=== PATIENT | female | born 1965 | race Caucasian/White ===

== ENCOUNTER 2017-01-29 14:38 | Emergency (ER) | payer OTHER ==
--- NOTE | 2017-01-29 16:30 | RAD ---
INDICATION: Left arm and hand pain. COMPARISON: There are no prior studies available for comparison. TECHNIQUE: Contiguous axial sections were obtained from the skull base through the T3 vertebra. Images were reconstructed in the sagittal and coronal planes. FINDINGS: There is straightening of the cervical spine with loss of the normal cervical lordosis. No prevertebral soft tissue swelling or fracture is seen. At the C3-C4 level there is mild posterior uncinate process spurring and hypertrophic change within the right facet joint. No significant spinal canal narrowing is present. There is mild neural foraminal narrowing on the left side and mild to moderate neural foraminal narrowing on the right side. At the C4-C5 level no significant spinal canal or neural foraminal narrowing is seen. At the C5-C6 level there is posterior uncinate process spurring which causes mild spinal canal narrowing. There is mild neural foraminal narrowing on the right side and moderate to severe neural foraminal narrowing on the left side. At the C6-C7 level there is mild posterior uncinate process spurring. No significant spinal canal narrowing is present. There is mild neural foraminal narrowing on the right side and moderate neural foraminal narrowing on the left side. IMPRESSION: 1. STRAIGHTENING OF THE CERVICAL SPINE, NO EVIDENCE FOR FRACTURE. 2. MILD TO MODERATE CERVICAL SPONDYLOSIS DESCRIBED IF THE PATIENT'S SYMPTOMS PERSIST CONSIDER MR IMAGING.
--- NOTE | 2017-01-29 16:38 | RAD ---
INDICATION: Left forearm pain. TECHNIQUE: 2 views of the left forearm were obtained. FINDINGS: The bones are normal alignment. No significant focal osseous abnormality or fracture is seen. IMPRESSION: NEGATIVE EXAM.
[2017-01-29 16:58] VITALS: BP 134/84
--- NOTE | 2017-01-29 17:03 | RAD ---
INDICATION: Left posterior chest pain. COMPARISON: There are no prior studies available for comparison. TECHNIQUE: A CT scan of the chest was performed without intravenous contrast. Contiguous axial sections were obtained from the lung apices through the lung bases. Images were reconstructed in the coronal and sagittal planes. FINDINGS: The lungs are clear. No pleural effusion is seen. No significant enlarged mediastinal or hilar lymph nodes are seen. The heart is within normal limits in size. No pericardial effusion is present. The thoracic aorta is normal in caliber. There is a small hiatal hernia present. No significant focal osseous abnormality is seen. IMPRESSION: 1. NO EVIDENCE FOR ACUTE FINDING. 2. SMALL HIATAL HERNIA.
--- NOTE | 2017-01-29 17:08 | RAD ---
INDICATION: Left upper arm pain and weakness. COMPARISON: There are no prior studies available for comparison. TECHNIQUE: Contiguous axial sections were obtained beginning above the C7 vertebra and scanning through the T12 vertebra. Images were reconstructed in the sagittal and coronal planes. FINDINGS: There is a [id number] dorsal scoliosis convex toward the right side. The vertebra are otherwise in normal alignment. No fracture is seen. There is mild diffuse degenerative disc disease. No significant spinal canal narrowing is appreciated. Neural foramen appear patent bilaterally. IMPRESSION: MILD DIFFUSE DEGENERATIVE DISC DISEASE. IF THE PATIENT'S SYMPTOMS PERSIST CONSIDER MR IMAGING.
--- NOTE | 2017-01-29 17:51 | UC ---
Lonnie Hunter SooYoung, scribed for Sonny Santos MD on 01/29/17 at 1539 . Upper Extremity HPI - HPI Summary HPI Summary: A 51 y/o F [place] [facility] [place]/o LUE pain for past two and a half months and worsening pain in the past 24 hours at L forearm. Onset of pain was under her L shoulder blade. Pt thinks she has a pinch nerve up shoulder and down back. Started under L shoulder blade. Associated sx: numbness to L forearm and hand; weakness to L hand. She explains her hand weakness as being unable to clip her nails. Denies neck pain, SOB. Alleviating factors: Advil. PMHx: pinched nerve, usually spontaneously resolves in a week. PCP is Family Medicine. - History of Current Complaint Chief Complaint: UCUpperExtremity Stated Complaint: ARM PAIN HAND NUMBNESS Time Seen by Provider: 01/29/17 15:33 Hx Obtained From: Patient Hx Last Menstrual Period: 2 weeks ago Onset/Duration: Lasting Hours - L hand/forearm, Lasting Weeks - LUE, Still Present Severity Initially: Moderate Severity Currently: Moderate Pain Intensity: 7 Pain Scale Used: 0-10 Numeric Location Of Pain: Is Discrete @ - LUE Character: Aching Alleviating Factor(s): OTC Meds Associated Signs And Symptoms: Positive: Weakness, Numbness/Tingling Related History: Dominant Hand Right - Allergies/Home Medications Allergies/Adverse Reactions: Allergies Allergy/AdvReac Type Severity Reaction Status Date / Time No Known Allergies Allergy Verified 04/27/14 09:27 PMH/Surg Hx/FS Hx/Imm Hx Previously Healthy: No - PMHx: fx - Surgical History Surgical History: None - Family History Known Family History: Positive: Hypertension - mother - Social History Occupation: Employed Full-time Lives: With Family - FRIEND Alcohol Use: Occasionally Substance Use Type: None Smoking Status (MU): Never Smoked Tobacco Review of Systems Constitutional: Negative Skin: Negative Eyes: Negative ENT: Negative Respiratory: Negative Cardiovascular: Negative Gastrointestinal: Negative Genitourinary: Negative Motor: Negative Neurovascular: Negative Musculoskeletal: Other: - pos: LUE Neurological: Weakness - L hand, Numbness - L forearm and hand Psychological: Negative All Other Systems Reviewed And Are Negative: Yes Physical Exam Triage Information Reviewed: Yes Appearance: Well-Appearing, No Pain Distress Vital Signs: Initial Vital Signs Temp 98 F 01/29/17 14:58 Pulse 100 01/29/17 14:58 Resp 22 01/29/17 14:58 BP 158/98 01/29/17 14:58 Pulse Ox 100 01/29/17 14:58 Vital Signs Reviewed: Yes Eyes: Positive: Other: - EOMI/KASSI ENT: Positive: Hearing grossly normal Neck: Positive: Supple, Nontender Respiratory: Positive: Chest non-tender, Lungs clear, Normal breath sounds Cardiovascular: Positive: RRR Musculoskeletal: Positive: Other: - neck and thoracic are non-tender to palpation. Shoulders have FROM. Shoulder extension/abduction bilat. Internal rotation T8 bilateral. Normal strength with elbow flexion and extension. Nml strength with wrist flexion and extension. 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 Slightly weakened abduction of fingers in L hand, slightly decreased finger flexion in L hand. Neurological Exam: Normal - motorsensory intact Neurological: Positive: Alert - A&Ox3 Psychological Exam: Normal Psychological: Positive: Age Appropriate Behavior Skin Exam: Normal - skin, color reflects adequate perfusion, dry Diagnostics - Laboratory Diagnostic Studies Completed/Ordered: C-SPINE CT, read by radiologist, IMPRESSION: 1. STRAIGHTENING OF THE CERVICAL SPINE, NO EVIDENCE FOR FRACTURE. 2. MILD TO MODERATE CERVICAL SPONDYLOSIS DESCRIBED IF THE PATIENT'S SYMPTOMS PERSIST. CONSIDER MR IMAGING. CT CHEST, read by radiologist, IMPRESSION: 1. No evidence for acute finding. 2. Small hiatal hernia. T-SPINE CT: Mild diffuse DDD. If the pt's sx persist consider MRI. - Radiology forearm Xray Interpretation: No Acute Changes - IMPRESSION: Negative exam Radiology Interpretation Completed By: Radiologist Re-Evaluation - Re-Evaluation 1 Re-Evaluation Time: 17:21 Change: Unchanged Comment: Discussing diagnostic results with pt. Upper Extremity Course/Dx - Course Course Of Treatment: Pt medication reviewed this visit. Hypertensive BP reading (>=158/98); patient referred to PCP within 1 day-4 weeks for follow-up. DISCUSSED RESULTS WITH PATIENT. THE ARM PAIN AND NUMBNESS HAS BEEN CHRONIC WITH WORSENING RECENTLY. THERE IS SOME FINGER FLEXION/ABDUCTION WEAKNESS ON EXAM. THE PLAN IS FOR THE PATIENT TO F/U WITH HER PMD IN THE NEXT 1-2 DAYS FOR PT AND POSSIBLE MRI. I DISCUSSED HER GOING TO THE EMERGENCY DEPARTMENT FOR WORSENING OF HER WEAKNESS OR IF THE WEAKNESS PERSISTS AND SHE CANNOT GET IN WITH HER PMD PROMPTLY. SHE AGREED TO THIS. - Differential Dx/Diagnosis Provider Diagnoses: LEFT ARM PAIN PARESTHESIA. Elevated blood pressure without diagnosis of hypertension Discharge - Discharge Plan Condition: Stable Disposition: HOME Prescriptions: traMADol TAB* [Ultram*] 50 mg PO Q6HR PRN #20 tab MDD 4 PRN Reason: Pain Patient Education Materials: Arm Pain (ED), Paresthesia (ED) Referrals: No Primary Care Phys,NOPCP [Medical Doctor] - Alia Henning MD [Primary Care Provider] - (Follow up with your primary care provider in the next 1 day - 4 weeks.) Additional Instructions: Your blood pressure reading today was 158/98 which is HYPERTENSIVE. Follow-up with your primary care provider within 4 weeks for blood pressure readings and further evaluation. FOLLOW UP WITH YOUR DOCTOR. CALL TOMORROW FOR FOLLOW UP WITH YOUR DOCTOR. GO TO THE EMERGENCY DEPARTMENT FOR ANY WORSENING OF YOUR CONDITION; WEAKNESS, NUMBNESS, PAIN OR QUESTIONS OR CONCERNS. The documentation as recorded by the Lonnie gleaosn SooYoung accurately reflects the service I personally performed and the decisions made by me, Sonny Santos MD.
== END 2017-01-29 17:58 | disposition home or self-care (01) ==
LOC: UCEAST 14:38
DX: R20.9 Unspecified disturbances of skin sensation (principal); R03.0 Elevated blood-pressure reading, without diagnosis of hypertension; M79.632 Pain in left forearm; M47.812 Spondylosis without myelopathy or radiculopathy, cervical region; M51.34 Other intervertebral disc degeneration, thoracic region; K44.9 Diaphragmatic hernia without obstruction or gangrene
CPT/HCPCS: 71250; 72125; 72128; 99212; G0463